=== PATIENT | female | born 1970 | race Caucasian/White ===

== ENCOUNTER 2022-02-21 11:45 | Inpatient (IN) | payer OTHER ==
[2022-02-21 12:45] VITALS: BMI 28.3
[2022-02-21] MEDS ORDERED: hydrOXYzine PAMOATE 25 MG CAPSULE (FP) PO PRN (13:03)
[2022-02-21] MEDS ORDERED: ACETAMINOPHEN 325 MG TABLET (FP) PO PRN ×2 (13:03)
[2022-02-21] MEDS ORDERED: chlordiazePOXIDE HCL 25 MG CAPSULE PO PRN (13:03)
[2022-02-21] MEDS ORDERED: NALOXONE HCL (KLOXXADO) 8 MG SPRAY NS PRN (13:03)
[2022-02-21] MEDS ORDERED: ONDANSETRON *ODT* 4 MG TABLET SL PRN (13:03)
[2022-02-21] MEDS ORDERED: BISMUTH SUBSALICYLATE 524 MG/30 ML PO PRN (13:03)
[2022-02-21] MEDS ORDERED: DICYCLOMINE HCL 10 MG CAPSULE PO PRN (13:03)
[2022-02-21] MEDS ORDERED: IBUPROFEN 400 MG TABLET (FP) PO PRN (13:03)
[2022-02-21] MEDS ORDERED: LOPERAMIDE HCL 2 MG CAPSULE PO PRN (13:03)
[2022-02-21] MEDS ORDERED: IBUPROFEN 600 MG TABLET (FP) PO PRN (13:03)
[2022-02-21] MEDS ORDERED: MAG HYDROX/AL HYDROX/SIMETH 30 ML UNIT-DOSE CUP PO PRN (13:03)
[2022-02-21] MEDS ORDERED: BENZOCAINE/MENTHOL (CHLORASEPTIC ) LOZENGE MM PRN (13:03)
[2022-02-21] MEDS ORDERED: MAGNESIUM HYDROX 2400MG/30ML ORAL SUSPENSION 30 ML CUP PO PRN (13:03)
[2022-02-21] MEDS ORDERED: MAGNESIUM CITRATE 300 ML BOTTLE PO PRN (13:03)
[2022-02-21] MEDS ORDERED: METHOCARBAMOL 500 MG TABLET PO PRN (13:03)
[2022-02-21] MEDS ORDERED: ALBUTEROL SO4 HFA INHALER IH PRN (13:19)
[2022-02-21] MEDS ORDERED: chlordiazePOXIDE HCL 25 MG CAPSULE PO ONE (13:45)
[2022-02-21] MEDS ORDERED: chlordiazePOXIDE HCL 25 MG CAPSULE ONE (14:00)
[2022-02-21] MEDS: NICOTINE 14 MG/24 HOURS TOPICAL PATCH TD SCH (15:40)
[2022-02-21] MEDS: PRENATAL VITAMINS W/ FOLIC ACID TABLET (FP) PO SCH (15:40)
[2022-02-21 16:25] LABS: HEMATOCRIT 40.3 % (32.4-45.2); HEMOGLOBIN 13.5 GM/dL (10.7-15.3); MCH 30.9 pg (25.7-33.7); MCHC 33.5 g/dl (32.0-36.0); MEAN CELL VOLUME 92.3 fl (80-96); MEAN PLT VOLUME 7.9 fl (7.5-11.1); PLATELET COUNT 254 10^3/uL (134-434); RBC 4.36 M/mm3 (3.60-5.2); RDW 15.7 % (11.6-15.6); WHITE BLOOD COUNT 5.5 K/mm3 (4.0-10.0)
[2022-02-21 16:27] LABS: CALCIUM 9.1 mg/dL (8.5-10.1)
[2022-02-21 16:28] LABS: ALBUMIN 3.4 g/dl (3.4-5.0); BLOOD UREA NITROGEN 12.6 mg/dL (7-18)
[2022-02-21 16:31] LABS: CREATININE 0.6 mg/dL (0.55-1.3)
[2022-02-21 16:33] LABS: BILIRUBIN,TOTAL 0.2 mg/dL (0.2-1); TOT PROT 7.7 g/dl (6.4-8.2)
[2022-02-21] MEDS: NICOTINE 10 MG CARTRIDGE (INHALER) IH PRN ×2 (16:43→22:41)
[2022-02-21] MEDS: chlordiazePOXIDE HCL 25 MG CAPSULE PO SCH ×2 (17:34→22:26)
[2022-02-21] MEDS: MONTELUKAST NA 10 MG TABLET PO SCH (22:26)
[2022-02-21] MEDS: MELATONIN 5 MG TABLETS PO SCH (22:26)
[2022-02-21] MEDS: THIAMINE HCL 100 MG TABLET (FP) PO SCH (22:26)
[2022-02-21] MEDS: FLUTICASONE/SALMETEROL 100 MCG/50 MCG DISKUS IH SCH (22:41)
[2022-02-22] MEDS: chlordiazePOXIDE HCL 25 MG CAPSULE PO SCH ×4 (05:55→22:09)
[2022-02-22] MEDS ORDERED: methaDONE HCL 40 MG DISPERSABLE TABLET PO SCH (09:00)
[2022-02-22] MEDS: PRENATAL VITAMINS W/ FOLIC ACID TABLET (FP) PO SCH (10:31)
[2022-02-22] MEDS: FLUTICASONE/SALMETEROL 100 MCG/50 MCG DISKUS IH SCH ×2 (10:31→23:01)
[2022-02-22] MEDS: NICOTINE 14 MG/24 HOURS TOPICAL PATCH TD SCH (10:31)
[2022-02-22] MEDS: methaDONE 40 MG, methaDONE 20 MG PO SCH (10:31)
[2022-02-22] MEDS: NICOTINE 10 MG CARTRIDGE (INHALER) IH PRN (10:32)
[2022-02-22] MEDS: ELVITEG/COB/EMTRI/TENOFO (STRIBILD) TABLET -NF PO SCH (15:04)
[2022-02-22] MEDS: MONTELUKAST NA 10 MG TABLET PO SCH (22:08)
[2022-02-22] MEDS: THIAMINE HCL 100 MG TABLET (FP) PO SCH (22:08)
[2022-02-22] MEDS: MELATONIN 5 MG TABLETS PO SCH (22:08)
[2022-02-22] MEDS: QUEtiapine FUMARATE 200 MG TABLET PO SCH (22:08)
[2022-02-23] MEDS: methaDONE 40 MG, methaDONE 20 MG PO SCH (05:40)
[2022-02-23] MEDS: chlordiazePOXIDE HCL 25 MG CAPSULE PO SCH ×4 (05:40→22:29)
[2022-02-23] MEDS: PRENATAL VITAMINS W/ FOLIC ACID TABLET (FP) PO SCH (10:49)
[2022-02-23] MEDS: ELVITEG/COB/EMTRI/TENOFO (STRIBILD) TABLET -NF PO SCH (10:49)
[2022-02-23] MEDS: NICOTINE 14 MG/24 HOURS TOPICAL PATCH TD SCH (10:49)
[2022-02-23] MEDS: FLUTICASONE/SALMETEROL 100 MCG/50 MCG DISKUS IH SCH ×2 (10:49→22:26)
[2022-02-23] MEDS: THIAMINE HCL 100 MG TABLET (FP) PO SCH (22:26)
[2022-02-23] MEDS: QUEtiapine FUMARATE 200 MG TABLET PO SCH (22:26)
[2022-02-23] MEDS: MONTELUKAST NA 10 MG TABLET PO SCH (22:26)
[2022-02-23] MEDS: MELATONIN 5 MG TABLETS PO SCH (22:27)
[2022-02-24] MEDS ORDERED: chlordiazePOXIDE HCL 10 MG CAPSULE PO PRN
[2022-02-24] MEDS: chlordiazePOXIDE HCL 10 MG CAPSULE PO SCH ×4 (06:00→22:24)
[2022-02-24] MEDS: methaDONE 40 MG, methaDONE 20 MG PO SCH (06:00)
[2022-02-24] MEDS: NICOTINE 10 MG CARTRIDGE (INHALER) IH PRN ×2 (06:13→18:21)
[2022-02-24] MEDS: ELVITEG/COB/EMTRI/TENOFO (STRIBILD) TABLET -NF PO SCH ×2 (10:44→10:50)
[2022-02-24] MEDS: PRENATAL VITAMINS W/ FOLIC ACID TABLET (FP) PO SCH (10:44)
[2022-02-24] MEDS: NICOTINE 14 MG/24 HOURS TOPICAL PATCH TD SCH (10:45)
[2022-02-24] MEDS: FLUTICASONE/SALMETEROL 100 MCG/50 MCG DISKUS IH SCH ×2 (10:45→22:22)
[2022-02-24] MEDS: ELVITEG/COB/EMTRI/TENOF (GENVOYA) TABLET (NF) PO SCH (17:29)
[2022-02-24] MEDS: THIAMINE HCL 100 MG TABLET (FP) PO SCH (22:22)
[2022-02-24] MEDS: MELATONIN 5 MG TABLETS PO SCH (22:23)
[2022-02-24] MEDS: QUEtiapine FUMARATE 200 MG TABLET PO SCH (22:23)
[2022-02-24] MEDS: MONTELUKAST NA 10 MG TABLET PO SCH (22:23)
[2022-02-25] MEDS ORDERED: chlordiazePOXIDE HCL 10 MG CAPSULE PO SCH (05:00)
[2022-02-25] MEDS: methaDONE 40 MG, methaDONE 20 MG PO SCH (05:34)
[2022-02-25 08:32] VITALS: BP 99/63; PULSE 96; RESP 16; TEMP 97.3
[2022-02-25] MEDS: ELVITEG/COB/EMTRI/TENOF (GENVOYA) TABLET (NF) PO SCH (09:19)
[2022-02-25] MEDS: PRENATAL VITAMINS W/ FOLIC ACID TABLET (FP) PO SCH (09:19)
[2022-02-25] MEDS: FLUTICASONE/SALMETEROL 100 MCG/50 MCG DISKUS IH SCH (09:43)
[2022-02-25] MEDS: NICOTINE 14 MG/24 HOURS TOPICAL PATCH TD SCH (09:43)
[2022-02-26] MEDS ORDERED: chlordiazePOXIDE HCL 10 MG CAPSULE PO ONE (05:00)
== END 2022-02-25 09:29 | disposition home or self-care (01) | DRG 773 ==
LOC: YASAS 11:45 → Y3N 14:06
PROVIDERS: ADMIT Allergy & Immunology; ATTEND Surgery
PROC: HZ2ZZZZ Detoxification Services for Substance Abuse Treatment (ICD-10-PCS; principal; 2022-02-21)
DX: F10.230 Alcohol dependence with withdrawal, uncomplicated (principal); F11.20 Opioid dependence, uncomplicated; F14.20 Cocaine dependence, uncomplicated; F17.210 Nicotine dependence, cigarettes, uncomplicated; F19.24 Other psychoactive substance dependence with psychoactive substance-induced mood disorder; F31.9 Bipolar disorder, unspecified; F25.9 Schizoaffective disorder, unspecified; Z21 Asymptomatic human immunodeficiency virus [HIV] infection status; J45.20 Mild intermittent asthma, uncomplicated; K21.9 Gastro-esophageal reflux disease without esophagitis; Z86.19 Personal history of other infectious and parasitic diseases
CPT/HCPCS: 36415; 71046-TC-FY; 80053; 81025; 82140; 85027; 86593; 86780; 93005; 93010; C9803-CS; U0003; U0005

== ENCOUNTER 2024-06-07 13:29 | Inpatient (IN) | payer OTHER ==
[2024-06-07 14:13] VITALS: BMI 20.7
[2024-06-07] MEDS ORDERED: P-EPHED 60MG/TRIPROLIDI 2.5MG TABLET PO PRN (15:07)
[2024-06-07] MEDS ORDERED: POLYETHYLENE GLYCOL (HEALTHYLAX) 3350 17 GM PACKET PO PRN (15:07)
[2024-06-07] MEDS ORDERED: DOCUSATE SODIUM 100 MG CAPSULE (FP) PO PRN (15:07)
[2024-06-07] MEDS ORDERED: IBUPROFEN 600 MG TABLET (FP) PO PRN (15:07)
[2024-06-07] MEDS ORDERED: BENZOCAINE/MENTHOL (CHLORASEPTIC ) LOZENGE MM PRN (15:07)
[2024-06-07] MEDS ORDERED: MAGNESIUM HYDROX 2400MG/30ML ORAL SUSPENSION 30 ML CUP PO PRN (15:07)
[2024-06-07] MEDS ORDERED: BENZONATATE 200 MG CAPSULE PO PRN (15:07)
[2024-06-07] MEDS ORDERED: IBUPROFEN 400 MG TABLET (FP) PO PRN (15:07)
[2024-06-07] MEDS ORDERED: NALOXONE (NARCAN) HCL 4 MG/0.1 ML SPRAY NS PRN (15:07)
[2024-06-07] MEDS ORDERED: ACETAMINOPHEN 325 MG TABLET (FP) PO PRN (15:07)
[2024-06-07] MEDS ORDERED: LOPERAMIDE HCL 2 MG CAPSULE PO PRN (15:07)
[2024-06-07] MEDS ORDERED: NICOTINE POLACRILEX 2 MG LOZENGE BC PRN (15:07)
[2024-06-07] MEDS ORDERED: guaiFENesin 600 MG TABLET.ER (FP) PO PRN (15:07)
[2024-06-07] MEDS ORDERED: NICOTINE POLACRILEX 2 MG GUM BUC PRN (15:07)
[2024-06-07] MEDS ORDERED: MAG HYDROX/AL HYDROX/SIMETH 30 ML UNIT-DOSE CUP PO PRN (15:07)
[2024-06-07] MEDS ORDERED: BISACODYL 5 MG TABLET.DR (FP) PO PRN (15:07)
[2024-06-07] MEDS: TUBERCULIN PPD 5 TU/0.1ML SYRINGE (IN PATIENT USE ONLY) ID ONE (18:24)
[2024-06-07] MEDS ORDERED: ALBUTEROL SO4 HFA INHALER IH PRN (18:29)
[2024-06-07] MEDS: MELATONIN 5 MG TABLETS PO SCH (22:42)
[2024-06-07] MEDS: THIAMINE 100 MG TABLET PO SCH (22:42)
[2024-06-08] MEDS ORDERED: methaDONE HCL 10 MG TABLET PO SCH (08:15)
[2024-06-08] MEDS: methaDONE 40 MG, methaDONE 30 MG PO SCH (08:53)
[2024-06-08 08:59] VITALS: BP 113/71; PULSE 78; RESP 18; TEMP 97.5
[2024-06-08] MEDS: PRENATAL VITAMINS W/ FOLIC ACID TABLET (FP) PO SCH (09:18)
[2024-06-08 11:10] LABS: CHLORIDE 102 mmol/L (98-107); POTASSIUM 4.9 mmol/L (3.5-5.1); SODIUM 135 mmol/L (136-145)
[2024-06-08 11:12] LABS: HEMATOCRIT 37.9 % (32.4-45.2); HEMOGLOBIN 12.2 GM/dL (10.7-15.3); MCH 28.7 pg (25.7-33.7); MCHC 32.2 g/dl (32.0-36.0); MEAN CELL VOLUME 89.2 fl (80-96); MEAN PLT VOLUME 6.3 fl (7.5-11.1); PLATELET COUNT 691 10^3/uL (134-434); RBC 4.25 M/mm3 (3.60-5.2); RDW 14.9 % (11.6-15.6); WHITE BLOOD COUNT 7.5 K/mm3 (4.0-10.0)
[2024-06-08 11:14] LABS: URINE APPEARANCE CLEAR; URINE BILIRUBIN NEGATIVE (NEGATIVE); URINE COLOR YELLOW; URINE GLUCOSE (UA) NEGATIVE (NEGATIVE); URINE KETONE NEGATIVE (NEGATIVE); URINE LEUK ESTERASE NEGATIVE (NEGATIVE); URINE NITRITE NEGATIVE (NEGATIVE); URINE PROTEIN NEGATIVE (NEGATIVE)
[2024-06-08 11:15] LABS: ALBUMIN 2.3 g/dl (3.4-5.0); ANION GAP 5 mmol/L (4-13); BLOOD UREA NITROGEN 13.6 mg/dL (7-18); CALCIUM 9.3 mg/dL (8.5-10.1); CO2 28 mmol/L (21-32)
[2024-06-08 11:16] LABS: GLUCOSE,RANDOM 86 mg/dL (74-106)
[2024-06-08 11:18] LABS: CREATININE 0.4 mg/dL (0.55-1.3); SGOT/AST 24 U/L (15-37); SGPT/ALT 18 U/L (13-61)
[2024-06-08 11:19] LABS: BILIRUBIN,TOTAL 0.4 mg/dL (0.2-1)
[2024-06-08 11:20] LABS: ALK PHOS 106 U/L (45-117); TOT PROT 7.6 g/dl (6.4-8.2)
[2024-06-08 12:24] LABS: SYPHILIS W/ RPR CONF REACTIVE (NONREACTIVE)
[2024-06-08] MEDS: CEPHALEXIN MONOHYDRATE 500 MG CAPSULE (UD) PO SCH (14:32)
[2024-06-08] MEDS: guaiFENesin 200 MG/10 ML 10 ML UNIT-DOSE CUPS PO PRN (14:32)
[2024-06-08] MEDS ORDERED: QUEtiapine FUMARATE 50 MG TABLET PO SCH (22:00)
== END 2024-06-08 16:47 | disposition left against medical advice (07) | DRG 770 ==
LOC: YASAS 13:29 → Y3NR 17:34
PROVIDERS: ADMIT Psychiatry & Neurology Pain Medicine; ATTEND Psychiatry & Neurology Pain Medicine
PROC: HZ42ZZZ Group Counseling for Substance Abuse Treatment, Cognitive-Behavioral (ICD-10-PCS; principal; 2024-06-07)
DX: F11.20 Opioid dependence, uncomplicated (principal); F10.20 Alcohol dependence, uncomplicated; F14.20 Cocaine dependence, uncomplicated; F17.210 Nicotine dependence, cigarettes, uncomplicated; F25.9 Schizoaffective disorder, unspecified; F31.9 Bipolar disorder, unspecified; Z21 Asymptomatic human immunodeficiency virus [HIV] infection status; J06.9 Acute upper respiratory infection, unspecified; Z86.19 Personal history of other infectious and parasitic diseases
CPT/HCPCS: 0241U-QW; 36415; 71045-TC-FY; 80053; 80305; 80307; 81003; 81025; 85027; 86593; 86780; 86803; 87811; 93005; 93010